=== PATIENT | male | born 1970 ===

== ENCOUNTER 2022-10-07 17:08 | Inpatient (IN) | payer SELFPAY ==
[~2022-10-07] VITALS: Ht 172.7 cm; Wt 74.8 kg
[2022-10-07 17:56] LABS: BASOPHILS ABSOLUTE AUTO 0.07 K/mm3 (0.00-0.23); BASOPHILS PERCENT AUTO 1 % (0-2); EOSINOPHILS ABSOLUTE AUTO 0.16 K/mm3 (0.00-0.68); EOSINOPHILS PERCENT AUTO 1 % (0-6); Hematocrit 40.8 % (37.0-53.0); Hemoglobin 12.8 g/dL (13.5-17.5); IMMATURE GRAN ABSOLUTE AUTO 0.05 K/mm3 (0.00-0.10); IMMATURE GRAN PERCENT AUTO 0 % (0-1); LYMPHOCYTES ABSOLUTE AUTO 3.45 K/mm3 (0.84-5.20); LYMPHOCYTES PERCENT AUTO 25 % (21-46); MONOCYTES ABSOLUTE AUTO 0.75 K/mm3 (0.16-1.47); MONOCYTES PERCENT AUTO 6 % (4-13); Mean Corpuscular HGB 24.5 pg (26.0-34.0); Mean Corpuscular HGB Conc 31.4 g/dL (31.5-36.5); Mean Corpuscular Volume 78 fL (80-100); Mean Platelet Volume 9.8 fL (9.1-12.4); NEUTROPHILS ABSOLUTE AUTO 9.17 K/mm3 (1.96-9.15); NEUTROPHILS PERCENT AUTO 67 % (41-73); Platelet Count 311 K/mm3 (150-400); RDW Coefficient Variation 14.6 % (11.7-14.2); RDW Standard Deviation 41.3 fL (35.1-46.3); Red Blood Cell Count 5.23 M/mm3 (4.30-5.90); White Blood Cell Count 13.65 K/mm3 (4.00-11.30)
[2022-10-07 18:00] LABS: Calcium, Ionized (POC) 1.12 mmol/L (1.10-1.46); Chloride (POC) 102 mmol/L (98-108); Creatinine (POC) 0.8 mg/dL (0.8-1.3); Glucose (ISTAT POC) 121 mg/dL (70-99); Hemoglobin (POC) 14.3 g/dL (13.5-17.5); Potassium (POC) 3.5 mmol/L (3.5-5.5); Sodium (POC) 139 mmol/L (135-148); Total CO2 (POC) 24 mmol/L (21-32)
[2022-10-07 18:06] LABS: Alanine Aminotransfer (ALT/SGP 31 U/L (12-78); Albumin, Blood 3.8 g/dL (3.4-5.0); Albumin/Globulin Ratio 1.1 (0.8-1.8); Alk Phos 106 U/L (50-136); Anion Gap 3 mmol/L (6-16); Aspartate Aminotrans (AST/SGOT 30 U/L (12-37); Bilirubin, Total 0.2 mg/dL (0.1-1.0); Blood Urea Nitrogen 19 mg/dL (8-24); Bun/Creatinine Ratio 24.1 (12.0-20.0); CHOL/HDL RATIO 3.4; CO2, Blood 26 mmol/L (21-32); Calcium, Blood 8.3 mg/dL (8.5-10.1); Chloride, Blood 108 mmol/L (98-108); Cholesterol 150 mg/dL (50-200); Creatinine, Blood 0.79 mg/dL (0.60-1.20); Globulin, Blood 3.6 g/dL (2.2-4.0); Glomerular Filtration Rate 107 (60-); Glucose, Blood 118 mg/dL (70-99); HDL Cholesterol 44 mg/dL (>39); LDL/HDL RATIO 1.8; Low Density Lipoprotein Chol 79 mg/dL (0-110); Magnesium, Blood 2.1 mg/dL (1.6-2.4); Potassium, Blood 3.5 mmol/L (3.5-5.5); Sodium, Blood 137 mmol/L (136-145); Total Protein, Blood 7.4 g/dL (6.4-8.2); Triglycerides 136 mg/dL (30-160); Very Low Density Lipoprot Chol 27 mg/dL (6-32)
--- NOTE | 2022-10-07 19:04 | NUR ---
PT ARRIVED TO ICU 5 FROM SALES AND CUSTOMER RELATIONS REP AT 1835. PT IS A/O X4. DENIES CP OR PRESSURE. HAS TR BAND TO R RADIAL THAT IS INFLATED WITH 10ML, SITE IS STABLE. R HAND IS WARM AND PALPABLE PULSE. PT EDUCATED ABOUT ROOM AND CALL LIGHT. PT CALLED FAMILY TO UPDATE THEM. NO SIGN OF DISTRESS.
--- NOTE | 2022-10-07 19:36 | NUR ---
UPDATE EKG DONE AT 1926, SHOWN TO DR CHAN WHO IS AT BEDSIDE FOR EVAL. DR CHAN VERBALIZED PLAN FOR TONIGHT. PT DENIES ANY ADDITIONAL QUESTIONS AT THIS TIME.
--- NOTE | 2022-10-07 21:24 | NUR ---
ASSUMTION OF CARE/ASSESSMENT: ASSUMED CARE OF PT AT 1900. PT IS NEW ADMIT FROM [facility] POST PCI WITH STENT PLACEMENT IN MID LAD AND TR BAND IN PLACE OVER R.RADIAL SITE. SITE LOOKS GOOD WITH NO SIGNS OF BLEEDING OR HEMATOMA PRESENT UPON ASSESSMENT. PT HAS NO C/O CHEST PAIN AT THIS TIME. PT IS A&O X 4, VERY PLEASANT, BUT THERE IS A SLIGHT LANGUAGE BARRIER R/T HIS ACCENT. PT APPEARS TO BE UNDERSTANDING MOST OF THE INFORMATION REGARDING HOSPITILIZATION. PT HAS CONCERNS ABOUT DISCHARGING SOON POSSIBLE SO THAT HE CAN GET HIS MEDICAL TREATMENT IN [place] D/T INSURANCE COVERAGE. WHEN THIS RN ATTEMPTED TO GIVE PT NIGHTTIME MEDS PT WAS RELUCTANT TO PROCEDE WITH MEDICATIONS R/T INSURANCE COVERAGE. CALL PLACED TO DR MARIE AT 2013 TO UPDATE ON SITUTION DUE TO THE IMPORTANCE OF THE MEDICATIONS POST PCI. PT CONTINUOUSLY EDUCATED ON WHY HE NEEDED THESE MEDICATIONS AND FINALLY AGGREED TO TAKE THE PLAVIX AND BLOOD PRESSURE MEDICATIONS. HE STATES THAT THESE MEDICATIONS WILL BE THE ONLY ONES HE TAKES D/T INSURANCE COVERAGE WORRIES. PT LUNG SOUNDS ARE CLEAR T/O WITH PT ON RA, SPO2 98<. PT SBP 130-140'S, HR 80-90'S; REPEAT EKG COMPLETED AT THE START OF THE SHIFT AND DR MARIE AT BEDSIDE TO REVIEW. PT HAS HYPERACTIVE BOWEL SOUNDS IN ALL FOUR QUADRANTS; TOLERATING WATER WELL. PT USING URINAL TO VOID. PPP X 4 WITH CAP REFIL < 3 SECONDS. PT HAS INDEPENDENT BED MOBILITY AND REQUIRED STANDBY ASSIST TO SIT UP AT EDGE OF BED TO USE URINAL. PT USES CALL LIGHT APPROPRIATELY, BED LOWERED, WILL CONTINUE TO [place] THROUGHOUT THE NIGHT.
[2022-10-08 03:24] LABS: BASOPHILS ABSOLUTE AUTO 0.07 K/mm3 (0.00-0.23); BASOPHILS PERCENT AUTO 1 % (0-2); EOSINOPHILS PERCENT AUTO 1 % (0-6); Hematocrit 41.7 % (37.0-53.0); Hemoglobin 12.6 g/dL (13.5-17.5); IMMATURE GRAN ABSOLUTE AUTO 0.02 K/mm3 (0.00-0.10); IMMATURE GRAN PERCENT AUTO 0 % (0-1); LYMPHOCYTES ABSOLUTE AUTO 3.16 K/mm3 (0.84-5.20); LYMPHOCYTES PERCENT AUTO 31 % (21-46); MONOCYTES ABSOLUTE AUTO 0.71 K/mm3 (0.16-1.47); MONOCYTES PERCENT AUTO 7 % (4-13); Mean Corpuscular HGB Conc 30.2 g/dL (31.5-36.5); Mean Corpuscular Volume 79 fL (80-100); Mean Platelet Volume 9.9 fL (9.1-12.4); NEUTROPHILS ABSOLUTE AUTO 6.04 K/mm3 (1.96-9.15); NEUTROPHILS PERCENT AUTO 60 % (41-73); Platelet Count 283 K/mm3 (150-400); RDW Coefficient Variation 14.8 % (11.7-14.2); RDW Standard Deviation 42.1 fL (35.1-46.3); Red Blood Cell Count 5.26 M/mm3 (4.30-5.90)
[2022-10-08 03:39] LABS: Bun/Creatinine Ratio 16.4 (12.0-20.0); Calcium, Blood 8.4 mg/dL (8.5-10.1); Creatinine, Blood 0.67 mg/dL (0.60-1.20); Potassium, Blood 3.9 mmol/L (3.5-5.5)
--- NOTE | 2022-10-08 06:22 | NUR ---
SHIFT SUMMARY: NO ACUTE CHANGES THIS SHIFT. PT HYPERTENSIVE FOR MAJORITY OF THE SHIFT WITH SBP AVG. 140-50, HR 70'S. VSS. PT SLEPT THROUGHOUT THE NIGHT. GOOD URINE OUTPUT THIS SHIFT. PT INDEPENDENT WITH BED MOBILITY AND USING CALL LIGHT APPROPRIATELY. WILL CONTINUE TO MONITOR UNTIL ONCOMING RN ARRIVES.
--- NOTE | 2022-10-08 09:45 | NUR ---
PT RESTING IN BED. DENIES CP OR PRESSURE. R RADIAL ACCESS SITE IS STABLE. PT HAS TAKEN CLEAR DRESSING AND ARM BOARD OFF. EDUCATED ABOUT SITE. DR. CHAN EDUCATED ABOUT MEDS THIS AM AND PT IS AGREEABLE TO TAKE MEDS HERE THEN AT DISCHARGE HE WILL FILL RX LOCALLY THEN HEAD BACK TO [place] WHERE HE WILL F/U WITH HIS MD. PT IS ANXIOUS TO BE DISCHARGED.
[2022-10-08] MEDS ORDERED: ASPIR 8181 M1 PO (12:53)
[2022-10-08] MEDS ORDERED: CLOP75 PO (12:54)
[2022-10-08] MEDS ORDERED: ATOR40TA PO (12:54)
[2022-10-08] MEDS ORDERED: IRBE150 PO (12:55)
[2022-10-08] MEDS ORDERED: METO50ER PO (12:56)
[2022-10-08] MEDS ORDERED: NITR.4SL SL (12:57)
--- NOTE | 2022-10-08 13:14 | NUR ---
DISCHARGE EDUCATION GIVEN. PT WANTED RX TO BE FILLED AT [facility] BECAUSE IT IS RIGHT OFF [place] [place] HE WILL BE TRAVELING THROUGH. RX CALLED TO [facility]. PT GIVEN STENT CARDS AND INSTRUCTIONS. PT IS TRAVELING BACK TO [place] AND INSTRUCTED NOT TO DRIVE HIMSELF. PT VERBALIZES UNDERSTANDING. [facility] CALLED FOR PT AND PT AMBULATES SELF OUT WITH ADVERTISING CAMPAIGN MANAGER ACCOMPANYING. PT DECLINES W/C. NO SIGN OF DISTRESS HE LEAVES THE UNIT.
== END 2022-10-08 14:03 | disposition home or self-care (01) | DRG 247 ==
LOC: ER 17:08 → ICUW 17:33 → ICUE 19:03
PROVIDERS: Student in an Organized Health Care Education/Training Program; ADMIT Internal Medicine Cardiovascular Disease
PROC: 027034Z Dilation of Coronary Artery, One Artery with Drug-eluting Intraluminal Device, Percutaneous Approach (ICD-10-PCS; principal; 2022-10-07)
PROC: 4A023N7 Measurement of Cardiac Sampling and Pressure, Left Heart, Percutaneous Approach (ICD-10-PCS; 2022-10-07)
PROC: B211YZZ Fluoroscopy of Multiple Coronary Arteries using Other Contrast (ICD-10-PCS; 2022-10-07)
PROC: B2151ZZ Fluoroscopy of Left Heart using Low Osmolar Contrast (ICD-10-PCS; 2022-10-07)
DX: I21.02 ST elevation (STEMI) myocardial infarction involving left anterior descending coronary artery (principal); I47.20 Ventricular tachycardia, unspecified; I10 Essential (primary) hypertension; E78.00 Pure hypercholesterolemia, unspecified; Z79.82 Long term (current) use of aspirin; Z79.02 Long term (current) use of antithrombotics/antiplatelets; Z79.899 Other long term (current) drug therapy
CPT/HCPCS: 36415; 71045; 80047; 80048; 80053; 80061; 83735; 84484; 85014; 85025; 85347; 86850; 86900; 86901; 92973; 93005; 93010; 93458; 99152; 99153; A9270; C1725; C1757; C1769; C1874; C1887; C1894; C8929; C9606; J1644; J1650; J2250; J3010; J7030; J7040; Q9957; Q9967